=== PATIENT | male | born 1970 | race Caucasian/White ===

== ENCOUNTER 2017-06-12 16:17 | Emergency (ER) | payer BC, OTHER ==
[~2017-06-12] VITALS: Ht 182.9 cm; Wt 104.2 kg
[~2017-06-12 16:17] MED LIST: AMOX500T3 PO; CZR50 PO; PRT/40 PO; WARF5TAB90 PO
[2017-06-12 16:49] VITALS: TEMP 37; Ht 182.9 cm; Wt 104.2 kg
--- NOTE | 2017-06-12 17:22 | EMERGENCY ROOM VISIT NOTE ---
ED Visit Note First contact with patient: 16:53 CHIEF COMPLAINT: Head injury HISTORY OF PRESENT ILLNESS: This 46-year-old male patient on Coumadin for a mechanical heart valve, presented to the emergency department 1 day after receiving a head injury when he hit his head while getting into his car. 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 He states while getting into the car, he got clumsy, and struck the right side of his head on the top of the car. The patient states he immediately got a headache, and was slightly fatigued on his drive home, however he states he was awake since approximately 5:30 AM, so feels that his fatigue could've been related to a long day. The patient states he was slightly restless throughout the evening, and awoke approximately 4:30 AM sweating. The patient states he fell back asleep at approximately 6:00, and states he had more of a headache, so called off work. Patient states he has been taking it easy today, and has not been overtly active, which is unusual for him. The patient states the headache has not improved. There was no loss of consciousness. There has been no vomiting. The patient denies nausea, vomiting, loss of consciousness, visual disturbances, tinnitus, altered mental status, confusion, memory loss. The headache has been constant. The patient complains of no neck pain. The patient has taken nothing for the pain. The patient rates the pain as 3/10 and achy. The patient denies bowel or bladder dysfunction. The patient denies any other injuries. The patient did not take his Coumadin yesterday or today due to the head injury. He states he is concerned and does not want to restart his Coumadin until he finds out that everything is okay. REVIEW OF SYSTEMS: A 10-system review of systems was performed with positives and pertinent negatives listed in the history of present illness. All other systems were reviewed and are negative. ALLERGIES: Decongestants MEDICATIONS: Coumadin, losartan, pantoprazole PMH: Mechanical aortic valve, GERD SOCIAL HISTORY: Recent lives locally with family. He denies drug, alcohol, tobacco use. PHYSICAL EXAM: Vital Signs: Reviewed Nurse's notes, vital signs stable. GENERAL : This is a 46-year-old male, in no acute distress, well-developed, well- nourished. NEURO: The patient is alert, oriented to person place and time, and coherent. Normal mini mental status exam. Negative Romberg and pronator drift. Cerebellar function intact. HEAD: Normocephalic, atraumatic. EYES: Pupils are equal round and reactive to light and accommodation. EOMs are full and optic discs and fundi are normal. There is no swelling or discoloration of the tissue surrounding the eyes. EARS: External auditory canals clear without blood. NOSE: Patent without tenderness. No septal hematoma. FACE: No facial bone tenderness. NECK: Supple. There is no cervical spine tenderness. The patient does not have tenderness with movement of the neck. RADIOLOGY: CT Head without contrast: FINDINGS: [employer] Investigator topogram: Unremarkable. Ventricles and sulci normal in size. Brain parenchyma normal in appearance with preserved kennedy-white differentiation. No mass effect or midline shift. No hemorrhage or acute territorial infarct. No extra-axial fluid collection. Paranasal sinuses and mastoid air cells clear. Calvarium intact. Layering fluid in the left maxillary sinus IMPRESSION: 1. No acute intracranial pathology. No hemorrhage. 2. Layering fluid in left maxillary sinus could suggest acute sinusitis. Correlate clinically. ED COURSE: I examined the patient. INR was checked and was 2.0. CT of the head was performed without acute intracranial hemorrhage or fracture. I discussed with the patient treatment plan at home, and encouraged him to take 5 mg of Coumadin when he gets home, and follow up with his Coumadin clinic tomorrow for further instructions. The patient states he has been managing this alone for a long time, and will do what he feels necessary in managing his Coumadin dosage. I discussed the findings with the patient that he could have a possible sinusitis, and he states he has been feeling mildly congested recently, but has not been sick or feverish. The patient will follow up with his PCP regarding this finding. The patient was in agreement with workup and plan. The patient was discharged home in good condition ambulatory. DIFFERENTIAL DIAGNOSIS: Intracranial hemorrhage, skull fracture, contusion, concussion, closed head injury, and others DIAGNOSIS: Head injury DISCHARGE INSTRUCTIONS: You have been treated in the Emergency Department for a Closed Head Injury. CT Scan of your head/brain demonstrated no acute bleeding or other abnormalities. This does not completely rule out the risk for future damage to the brain. For pain control, you can use the following wkve-kax-nghjwki medicines (if >12 yo): - Regular strength (325mg/tab) Tylenol (acetaminophen) 2 tabs every 4-6 hours as needed. Do not exceed 9 tablets in a 24 hour period. Avoid taking more than 3 grams (3000 mg) of Tylenol per day. This includes any other sources of acetaminophen you may take on a regular basis. - Regular strength (200 mg/tab) Advil (ibuprofen) 1-2 tabs every 4-6 hours as needed. Do not exceed a dose of 2400 mg per day. You should relax in a quiet, dark place for the rest of the day. Avoid any possible triggers including: cigarette smoke, caffeine, nicotine, chocolate, wine, beer, loud noises or music, or bright lights. You should schedule a follow-up appointment in 2-3 days with your Primary Care Provider or established Neurologist for further evaluation and treatment of your Headache. Please follow up tomorrow regarding your INR and Coumadin dosing. Return to the Emergency Department if your current symptoms worsen despite treatment course outlined above, or if you develop any of the following symptoms : intractable pain despite aforementioned treatment course, visual disturbances , loss of vision, unilateral weakness or facial drooping, slurring of speech, loss of coordination, or loss of consciousness. Problem List Medical Problems: (1) Anticoagulants,Lt,Current Use Status: Chronic (2) Diarrhea Status: Resolved (3) Hypertension Nos Status: Chronic Surgical Problems: (1) Heart Valve Replac Nec Status: Chronic Current/Historical Medications Scheduled Amoxicillin (Amoxil), 2,000 MG PO UD Losartan Potassium (Losartan Potassium), 50 MG PO DAILY Pantoprazole (Pantoprazole Sodium), 40 MG PO DAILY Warfarin Sodium (Coumadin), 5 MG PO 4XWK Warfarin Sodium (Coumadin), 2.5 MG PO 3XWK Allergies Uncoded Allergies: DECONGESTANT (Allergy, Intermediate, HEART PALPITATIONS, 02/15/15) Vital Signs Date Time Temp Pulse Resp B/P (MAP) Pulse Ox O2 Delivery O2 Flow Rate FiO2 06/12/17 16:51 18 98 06/12/17 16:49 37.0 68 18 162/90 98 Room Air Departure Information Impression Primary Impression: Closed head injury Dispostion Home / Self-Care Condition GOOD Referrals Augusto Mc D.OLeonie (PCP) Patient Instructions ED Head Injury Closed, My [facility] Additional Instructions You have been treated in the Emergency Department for a Closed Head Injury. CT Scan of your head/brain demonstrated no acute bleeding or other abnormalities. This does not completely rule out the risk for future damage to the brain. For pain control, you can use the following kpbb-hyn-osvvtgw medicines (if >12 yo): - Regular strength (325mg/tab) Tylenol (acetaminophen) 2 tabs every 4-6 hours as needed. Do not exceed 9 tablets in a 24 hour period. Avoid taking more than 3 grams (3000 mg) of Tylenol per day. This includes any other sources of acetaminophen you may take on a regular basis. - Regular strength (200 mg/tab) Advil (ibuprofen) 1-2 tabs every 4-6 hours as needed. Do not exceed a dose of 2400 mg per day. You should relax in a quiet, dark place for the rest of the day. Avoid any possible triggers including: cigarette smoke, caffeine, nicotine, chocolate, wine, beer, loud noises or music, or bright lights. You should schedule a follow-up appointment in 2-3 days with your Primary Care Provider or established Neurologist for further evaluation and treatment of your Headache. Please follow up tomorrow regarding your INR and Coumadin dosing. Return to the Emergency Department if your current symptoms worsen despite treatment course outlined above, or if you develop any of the following symptoms : intractable pain despite aforementioned treatment course, visual disturbances , loss of vision, unilateral weakness or facial drooping, slurring of speech, loss of coordination, or loss of consciousness. Work Instructions Return To Work: 1 day Problem Qualifiers Primary Impression: Closed head injury Encounter type: initial encounter Qualified Codes: S09.90XA - Unspecified injury of head, initial encounter
--- NOTE | 2017-06-12 17:43 | DIAGNOSTIC IMAGING REPORT ---
HEAD WITHOUT CONTRAST (CT) CLINICAL HISTORY: 46 years-old Male presenting with head injury, headache, on coumadin. TECHNIQUE: Multidetector CT imaging of the head was performed without the use of intravenous contrast. IV contrast: None. A dose lowering technique was used consistent with the principles of ALARA (as low as reasonably achievable). COMPARISON: 02/15/2015. CT DOSE (mGy.cm): The estimated cumulative dose is 601.98 mGy.cm. 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 Ventricles and sulci normal in size. Brain parenchyma normal in appearance with preserved kennedy-white differentiation. No mass effect or midline shift. No hemorrhage or acute territorial infarct. No extra-axial fluid collection. Paranasal sinuses and mastoid air cells clear. Calvarium intact. Layering fluid in the left maxillary sinus IMPRESSION: 1. No acute intracranial pathology. No hemorrhage. 2. Layering fluid in left maxillary sinus could suggest acute sinusitis. Correlate clinically. Electronically signed by: Bismark Dsouza M.D. 06/12/2017 5:42 PM Dictated Date/Time: 06/12/2017 5:39 PM
[2017-06-12 18:34] VITALS: BP 132/92; PULSE 67; O2SAT 98
== END 2017-06-12 18:34 | disposition home or self-care (01) ==
LOC: C.EDB 16:18 → C.EDD 18:34
DX: S09.90XA Unspecified injury of head, initial encounter (principal); V48.4XXA Person boarding or alighting a car injured in noncollision transport accident, initial encounter; I35.8 Other nonrheumatic aortic valve disorders; K21.9 Gastro-esophageal reflux disease without esophagitis; I10 Essential (primary) hypertension; I51.9 Heart disease, unspecified; Z79.01 Long term (current) use of anticoagulants; Z79.899 Other long term (current) drug therapy

== ENCOUNTER 2017-10-01 20:13 | Emergency (ER) | payer OTHER ==
[~2017-10-01] VITALS: Ht 182.9 cm; Wt 104.3 kg
[~2017-10-01 20:13] MED LIST changes: +PANT40TA2 PO; -PRT/40 PO
[2017-10-01 20:20] VITALS: Ht 182.9 cm; Wt 104.3 kg
[2017-10-01] MEDS ORDERED: SODIUM CHLORIDE 0.9% 1000ML 1,000 ML IV STA (21:13)
--- NOTE | 2017-10-01 21:19 | EMERGENCY ROOM VISIT NOTE ---
History Report prepared by Giovanni: Joselyn Pearce Under the Supervision of: Dr. Maria Alejandra Martins D.O. First contact with patient: 21:02 Chief Complaint: FEVER Stated Complaint: 48+ HR HIGH FEVER,LIGHTHEADED,HEADACHE History of Present Illness The patient is a 47 year old male who presents to the Emergency Room with complaints of a constant fever beginning two days ago. Four days ago, the patient notes he started to feel "off". Two days ago, the patient had a chest x- ray at urgent care and was put on 500 mg of cefuroxime. He reports his temperature this morning was 103 degrees Fahrenheit. He notes a headache and lightheadedness when his fever is high. The patient has been taking Tylenol to manage his fever over the past two days. Presently, he feels asymptomatic and notes that he feels fine when he is on Tylenol. The patient had his aortic valve replaced in 1993 for aortic stenosis. He is on Coumadin and his last Coumadin level 3.4. Pt denies nasal congestion, change in vision, fevers, chest pain, shortness of breath, nausea, vomiting, diarrhea, pain with urination, and melena. Source of History: patient Onset: two days ago Position: other (generalized) Quality: other (fever) Timing: constant Associated Symptoms: + headache, No chest pain, No SOB, No nausea, No vomiting, No diarrhea, No urinary symptoms Review of Systems See HPI for pertinent positives & negatives. A total of 10 systems reviewed and were otherwise negative. Past Medical & Surgical Medical Problems: (1) Anticoagulants,Lt,Current Use (2) Diarrhea (3) Hypertension Nos Surgical Problems: (1) Heart Valve Replac Nec Family History Diabetes mellitus FHx: cancer Social History Smoking Status: Never Smoker Alcohol Use: none Drug Use: none Marital Status: Housing Status: lives with family Occupation Status: employed Current/Historical Medications Scheduled Amoxicillin (Amoxil), 2,000 MG PO UD Losartan Potassium (Losartan Potassium), 50 MG PO DAILY Pantoprazole (Pantoprazole Sodium), 40 MG PO DAILY Warfarin Sodium (Coumadin), 5 MG PO 4XWK Warfarin Sodium (Coumadin), 2.5 MG PO 3XWK Allergies Uncoded Allergies: DECONGESTANT (Allergy, Intermediate, HEART PALPITATIONS, 02/15/15) Physical Exam Vital Signs Date Time Temp Pulse Resp B/P (MAP) Pulse Ox O2 Delivery O2 Flow Rate FiO2 10/02/17 02:40 90 18 127/85 95 10/02/17 02:39 38.2 10/02/17 02:01 90 16 127/85 95 Room Air 10/02/17 01:19 97 Room Air 10/01/17 23:28 77 145/77 95 Room Air 10/01/17 20:20 38.0 117 18 158/89 95 Room Air Physical Exam GENERAL: alert, well appearing, well nourished, no distress, non-toxic EYE EXAM: normal conjunctiva, PERRL and EOM's grossly intact OROPHARYNX: no exudate, no erythema, lips, buccal mucosa, and tongue normal and mucous membranes are moist NECK: supple, no nuchal rigidity, no adenopathy, non-tender LUNGS: Clear to auscultation. Normal chest wall mechanics HEART: Well healed midline sternotomy scar, sound of artificial valve noted, no murmurs. ABDOMEN: abdomen soft, non-tender, normo-active bowel sounds, no masses, no rebound or guarding. BACK: Back is symmetrical on inspection and there is no deformity, no midline tenderness, no CVA tenderness. SKIN: no petechiae, rashes and no bruising, no Janeway lesions or Osler's nodes UPPER EXTREMITIES: upper extremities are grossly normal. LOWER EXTREMITIES: No pitting edema. NEURO EXAM: Normal sensorium, cranial nerves II-XII grossly intact, normal speech, no gross weakness of arms, no gross weakness of legs. Medical Decision & Procedures ER Provider Diagnostic Interpretation: CHEST 2 VIEWS from Urgent care on 09/30/17: FINDINGS: Cardiomediastinal silhouette and pulmonary vessels normal. Sternotomy wires are present. Opacity overlying the posterior inferior lung, not well delineated on the AP radiograph, although may be within the left lower lobe. No pneumothorax or pleural effusion is present. IMPRESSION: Question left lower lobe opacity. Standard two view chest radiograph is suggested for better delineation of the pulmonary anatomy. Radiology results have been interpreted by the radiologist and reviewed by me. TWO VIEW CHEST FINDINGS: PA and lateral chest radiographs are compared to study dated 03/03/2014. The patient is status post midline sternotomy. The heart is enlarged. The pulmonary vasculature is noncongested. The lungs and pleural spaces are clear. There is no pneumothorax. The bony thorax appears intact. IMPRESSION: Cardiomegaly with no active disease in the chest. Electronically signed by: Guille Valle M.D. Laboratory Results 10/01/17 21:40 Red Blood Count 5.26, Mean Corpuscular Volume 85.6, Mean Corpuscular Hemoglobin 28.7, Mean Corpuscular Hemoglobin Concent 33.6, Mean Platelet Volume 10.5, Neutrophils (%) (Auto) 81.4, Lymphocytes (%) (Auto) 7.8, Monocytes (%) (Auto) 9.7, Eosinophils (%) (Auto) 0.5, Basophils (%) (Auto) 0.3, Neutrophils # (Auto) 6.12, Lymphocytes # (Auto) 0.59, Monocytes # (Auto) 0.73, Eosinophils # (Auto) 0.04, Basophils # (Auto) 0.02 10/01/17 21:40 Test 10/01/17 21:40 10/01/17 21:46 10/01/17 22:15 10/01/17 22:42 White Blood Count 7.52 K/uL (4.8-10.8) Red Blood Count 5.26 M/uL (4.7-6.1) Hemoglobin 15.1 g/dL (14.0-18.0) Hematocrit 45.0 % (42-52) Mean Corpuscular Volume 85.6 fL (80-100) Mean Corpuscular Hemoglobin 28.7 pg (25-34) Mean Corpuscular Hemoglobin Concent 33.6 g/dl (32-36) Platelet Count 254 K/uL (130-400) Mean Platelet Volume 10.5 fL (7.4-10.4) Neutrophils (%) (Auto) 81.4 % Lymphocytes (%) (Auto) 7.8 % Monocytes (%) (Auto) 9.7 % Eosinophils (%) (Auto) 0.5 % Basophils (%) (Auto) 0.3 % Neutrophils # (Auto) 6.12 K/uL (1.4-6.5) Lymphocytes # (Auto) 0.59 K/uL (1.2-3.4) Monocytes # (Auto) 0.73 K/uL (0.11-0.59) Eosinophils # (Auto) 0.04 K/uL (0-0.5) Basophils # (Auto) 0.02 K/uL (0-0.2) RDW Standard Deviation 41.2 fL (36.4-46.3) RDW Coefficient of Variation 13.2 % (11.5-14.5) Immature Granulocyte % (Auto) 0.3 % Immature Granulocyte # (Auto) 0.02 K/uL (0.00-0.02) Prothrombin Time 21.4 SECONDS (9.0-12.0) Prothromb Time International Ratio 2.1 (0.9-1.1) Anion Gap 6.0 mmol/L (3-11) Est Creatinine Clear Calc Drug Dose 74.1 ml/min Estimated GFR () 61.4 Estimated GFR (Non- 52.9 BUN/Creatinine Ratio 8.8 (10-20) Calcium Level 8.8 mg/dl (8.5-10.1) Magnesium Level 2.1 mg/dl (1.8-2.4) Total Bilirubin 0.5 mg/dl (0.2-1) Aspartate Amino Transf (AST/SGOT) 37 U/L (15-37) Alanine Aminotransferase (ALT/SGPT) 56 U/L (12-78) Alkaline Phosphatase 104 U/L (45-117) Troponin I < 0.015 ng/ml (0-0.045) Total Protein 7.5 gm/dl (6.4-8.2) Albumin 3.6 gm/dl (3.4-5.0) Globulin 3.9 gm/dl (2.5-4.0) Albumin/Globulin Ratio 0.9 (0.9-2) Lipase 192 U/L (73-393) Bedside Lactic Acid Venous 0.89 mmol/L (0.90-1.70) Influenza Type A Antigen Neg for Influ A (NEG) Influenza Type B Antigen Neg for Influ B (NEG) Urine Color DK YELLOW Urine Appearance CLEAR (CLEAR) Urine pH 5.0 (4.5-7.5) Urine Specific [place] 1.029 (1.000-1.030) Urine Protein TRACE (NEG) Urine Glucose (UA) NEG (NEG) Urine Ketones TRACE (NEG) Urine Occult Blood NEG (NEG) Urine Nitrite NEG (NEG) Urine Bilirubin NEG (NEG) Urine Urobilinogen NEG (NEG) Urine Leukocyte Esterase NEG (NEG) Urine WBC (Auto) 1-5 /hpf (0-5) Urine RBC (Auto) 0-4 /hpf (0-4) Urine Hyaline Casts (Auto) 1-5 /lpf (0-5) Urine Epithelial Cells (Auto) 5-10 /lpf (0-5) Urine Bacteria (Auto) NEG (NEG) Laboratory results per my review. Medications Administered Medications (Trade) Dose Ordered Sig/Gianna Route Start Time Stop Time Status Last Admin Dose Admin Sodium Chloride 1,000 ml @ 999 mls/hr Q1H1M STAT IV 10/01/17 21:13 10/01/17 22:13 DC 10/01/17 21:13 999 MLS/HR ECG Indication: other (fever) Rate (beats per minute): 94 Rhythm: normal sinus Findings: T-wave inversion (lead three), left axis deviation ED Course 2103: The patient was evaluated in room C1B. A complete history and physical exam was performed. 2112: Ordered Sodium Chloride 1000 ml @ 999 mls/hr IV. 0039: I updated the patient on his test results he is resting comfortably. 0230: Upon reevaluation, the patient is feeling better. I discussed the findings and the treatment plan with the patient. He verbalizes agreement and understanding. The patient was discharged home. Medical Decision Differential diagnosis: Etiologies such as viral syndrome, otitis, pharyngitis, pneumonia, influenza, meningitis, urinary tract infection, sepsis, bacteremia, as well as others were entertained. Patient here due to persistent fever area patient taking Tylenol only as he is on Coumadin due to a heart valve and cannot take ibuprofen. Patient's fever improved by the time of my evaluation as he taken Tylenol prior. Patient's labs reassuring, strep negative, chest x-ray here without focal infiltrate or consolidation. Reviewed outpatient chest x-ray which questioned evolving pneumonia. Patient taking antibiotics as previously prescribed. Patient with mild respiratory symptoms, however stable vital signs and not hypoxic. Blood culture sent as a precaution given patient's history. Patient made aware of his slightly subtherapeutic INR. Vision states he will modify this and have her rechecked at the end of the week as he is very comfortable managing his INR as he has been doing so for 20 years. I do not suspect meningitis/encephalitis , I do not suspect endocarditis, pericarditis. I do not suspect bacteremia/ sepsis. I do not suspect failed outpatient therapy at this time. Patient instructed to have his INR rechecked after at adjusting his doses, discussed hydration, fever control, continuation of his antibiotic treatment, symptoms to watch and return for, close follow-up with his family doctor within 48 hours, he verbalized understanding all this was agreeable with plan. Patient well- appearing at time of discharge with stable vitals, tolerating by mouth, ambulating with a steady gait and had no complaints. Medication Reconcilliation Current Medication List: was personally reviewed by me Blood Pressure Screening Patient's blood pressure: Normal blood pressure Impression Primary Impression: Fever Scribe Attestation The scribe's documentation has been prepared under my direction and personally reviewed by me in its entirety. I confirm that the note above accurately reflects all work, treatment, procedures, and medical decision making performed by me. Departure Information Dispostion Home / Self-Care Referrals Darek Ramirez M.D.(KARI) (PCP) Forms HOME CARE DOCUMENTATION FORM, IMPORTANT VISIT INFORMATION Patient Instructions My [facility] Additional Instructions Please continue using Tylenol as needed for your fevers. Please continue your course of antibiotics until they are completed. While you're taking antibiotics please consider using probiotics to help prevent additional GI symptoms. If you develop persistent fevers, chest pain, trouble breathing, worsening cough, blood in your sputum, neck pain, vision changes, dizziness, increasing headaches, rash or spots on your skin, diarrhea, or you've any other new concerns, please return the emergency room. Problem Qualifiers Primary Impression: Fever Fever type: unspecified Qualified Codes: R50.9 - Fever, unspecified
[2017-10-01 21:48] LABS: BASO % 0.3 %; BASO ABS # 0.02 K/uL (0-0.2); COMPLETE YES; EOS % 0.5 %; IG% 0.3 %; LYMPH % 7.8 %; LYMPH ABS # 0.59 K/uL (1.2-3.4); MEAN CELL VOLUME 85.6 fL (80-100); MEAN CORPUSCULAR HEMOGLOBIN 28.7 pg (25-34); MEAN CORPUSCULAR HGB CONC 33.6 g/dl (32-36); MEAN PLATELET VOLUME 10.5 fL (7.4-10.4); MONO % 9.7 %; NEUT % 81.4 %; PLATELET COUNT 254 K/uL (130-400); RED BLOOD COUNT 5.26 M/uL (4.7-6.1); WHITE BLOOD COUNT 7.52 K/uL (4.8-10.8)
[2017-10-01 21:58] LABS: INR 2.1 (0.9-1.1); PROTHROMBIN TIME (PATIENT) 21.4 SECONDS (9.0-12.0)
[2017-10-01 22:09] LABS: ALT/SGPT 56 U/L (12-78); BLOOD UREA NITROGEN 14 mg/dl (7-18); BUN/CREATININE RATIO 8.8 (10-20); CALCIUM 8.8 mg/dl (8.5-10.1); CARBON DIOXIDE 26 mmol/L (21-32); CHLORIDE 102 mmol/L (98-107); CREATININE 1.54 mg/dl (0.60-1.40); GLUCOSE 113 mg/dl (70-99); MAGNESIUM 2.1 mg/dl (1.8-2.4); POTASSIUM 4.2 mmol/L (3.5-5.1); SODIUM 134 mmol/L (136-145)
[2017-10-01 22:14] LABS: ALB/GLOB RATIO 0.9 (0.9-2); ALKALINE PHOSPHATASE 104 U/L (45-117); AST/SGOT 37 U/L (15-37)
[2017-10-01 23:04] LABS: URINE APPEARANCE CLEAR (CLEAR); URINE BILIRUBIN NEG (NEG); URINE COLOR DK YELLOW; URINE NITRITE NEG (NEG); URINE SPECIFIC GRAVITY 1.029 (1.000-1.030); UROBILINOGEN NEG (NEG); ZZUR CULT IF INDIC CLEAN CATCH NO
[2017-10-01 23:12] LABS: MANUAL MICROSCOPIC REQUIRED? NO; REVIEW REQ? NO
--- NOTE | 2017-10-01 23:19 | DIAGNOSTIC IMAGING REPORT ---
TWO VIEW CHEST CLINICAL HISTORY: Fever. FINDINGS: PA and lateral chest radiographs are compared to study dated 03/03/2014. The patient is status post midline sternotomy. The heart is enlarged. The pulmonary vasculature is noncongested. The lungs and pleural spaces are clear. There is no pneumothorax. The bony thorax appears intact. IMPRESSION: Cardiomegaly with no active disease in the chest. Electronically signed by: Guille Valle M.D. 10/01/2017 11:18 PM Dictated Date/Time: 10/01/2017 11:17 PM
[2017-10-02 02:39] VITALS: TEMP 38.2
[2017-10-02 02:40] VITALS: BP 127/85; PULSE 90; O2SAT 95
[2017-10-03] MEDS ORDERED: GUAI600T49 PO (22:02)
[2017-10-03] MEDS ORDERED: ACET-1256 PO (22:02)
[2017-10-03] MEDS ORDERED: LEVO1TAB35 PO (22:02)
[2017-10-03] MEDS ORDERED: ONDA4TAB10 SL (23:44)
[2017-10-03] MEDS ORDERED: BENZ10LO2 PO (23:44)
[2017-10-06] MEDS ORDERED: LEVO1TAB35 PO (13:01)
[2017-10-06] MEDS ORDERED: LCTX PO (13:01)
[2017-10-06] MEDS ORDERED: AMOX875T PO (13:01)
== END 2017-10-02 02:41 | disposition home or self-care (01) ==
LOC: C.EDB 20:15 → C.EDC 10-02 02:41
DX: R50.9 Fever, unspecified (principal); I10 Essential (primary) hypertension; Z95.2 Presence of prosthetic heart valve; Z79.01 Long term (current) use of anticoagulants; Z79.899 Other long term (current) drug therapy; Z83.3 Family history of diabetes mellitus; Z80.9 Family history of malignant neoplasm, unspecified

== ENCOUNTER 2017-10-03 21:01 | Emergency (ER) | payer OTHER ==
[~2017-10-03] VITALS: Ht 182.9 cm; Wt 104.1 kg
[2017-10-03 21:10] VITALS: Ht 182.9 cm; Wt 104.1 kg
[2017-10-03] MEDS ORDERED: SODIUM CHLORIDE 0.9% 500ML 500 ML IV STA (21:50)
--- NOTE | 2017-10-03 21:51 | EMERGENCY ROOM VISIT NOTE ---
History Report prepared by Giovanni: Abdoulaye Wu Under the Supervision of: Dr. Francis Pemberton M.D. First contact with patient: 21:14 Chief Complaint: FEVER Stated Complaint: FEVER CANT KEEP HYDRATED History of Present Illness The patient is a 47 year old white male with a past medical history of HTN, GERD , and a heart valve who presents to the ED with a cc of a constant fever beginning four days ago. Pt has tried Tamiflu, an inhaler, Mucinex, Tylenol, and Motrin. He states the Tylenol will break his fever, but then it will come back. Pt had a fever of 103.3 degrees 1.5 hours ago. He reports he has taken three doses of 600mg of Advil over the past two days even though he is not supposed to because he is on Coumadin from his heart valve. Pt's does not think he is getting enough fluids. He was here two nights ago for similar symptoms, and his INR was 2.3. Pt will have episodes of lightheadedness, a headache, and coughing. Negative sorethroat, history of smoking, vomiting, urinary symptoms, back pain, swelling to his legs, rashes, recent travel. Source of History: patient Onset: 6 days ago Position: other (global) Quality: other (fever) Timing: constant Modifying Factors (Relieving): tylenol (works, but then it comes back) Associated Symptoms: + headache, + cough, No sorethroat, No vomiting, No back pain, No urinary symptoms, No rash Note: Associated symptoms: lightheadedness Denies: swelling to his legs, recent travel Review of Systems See HPI for pertinent positives and negatives. A total of ten systems were reviewed and were otherwise negative. Past Medical & Surgical Medical Problems: (1) Anticoagulants,Lt,Current Use (2) Diarrhea (3) Hypertension Nos Surgical Problems: (1) Heart Valve Replac Nec Family History Diabetes mellitus FHx: cancer Social History Smoking Status: Never Smoker Alcohol Use: none Drug Use: none Marital Status: Housing Status: lives with family Occupation Status: employed Current/Historical Medications Scheduled Amoxicillin (Amoxil), 2,000 MG PO UD Benzocaine-Menthol (Mouth-Thro (Cepacol Sore Throat), 1 ARTHUR PO QID Levofloxacin (Levaquin), 750 MG PO DAILY Losartan Potassium (Losartan Potassium), 50 MG PO DAILY Ondasetron Odt (Zofran Odt), 4 MG SL Q6H Pantoprazole (Pantoprazole Sodium), 40 MG PO DAILY Warfarin Sodium (Coumadin), 5 MG PO 4XWK Warfarin Sodium (Coumadin), 2.5 MG PO 3XWK Scheduled PRN Acetaminophen (Tylenol), 1,000 MG PO DIRECTED PRN for Pain or Fever Guaifenesin (Mucus Relief Er), 1 DOSE PO DIRECTED PRN for CONGESTION Allergies Coded Allergies: Chlorpheniramine (Verified Allergy, Intermediate, HEART PALPATATIONS, 10/03) Phenylpropanolamine (Verified Allergy, Intermediate, HEART PALPATATIONS, 10/03/17) Physical Exam Vital Signs Date Time Temp Pulse Resp B/P (MAP) Pulse Ox O2 Delivery O2 Flow Rate FiO2 10/03/17 23:55 88 20 134/72 98 10/03/17 22:35 37.4 82 20 122/88 96 Room Air 10/03/17 22:35 95 Room Air 10/03/17 21:10 37.6 104 20 125/90 94 Room Air Physical Exam GENERAL: Awake, alert, well-appearing, NAD HENT: Normocephalic, atraumatic. Posterior pharynx is clear, no swelling, erythema, or exudate. No meningismus. EYES: Normal conjunctiva. Sclera non-icteric. No photophobia NECK: Supple. No nuchal rigidity. FROM. RESPIRATORY: CTAB, no rhonchi, wheezing, crackles CARDIAC: RRR, no MRG ABDOMEN: Soft, NTND, BS+ MSK: No chest wall TTP, no LE edema NEURO: GCS 15, CN 2-12 intact, moves all 4s on command SKIN: No rash or jaundice noted. Medical Decision & Procedures ER Provider Diagnostic Interpretation: X-ray: Per my interpretation, radiologist review. CHEST ONE VIEW PORTABLE HISTORY: 47 years-old Male Evaluate Fever/Sepsis acute fever with sepsis COMPARISON: Chest radiograph 10/01/2017 TECHNIQUE: Portable AP view of the chest FINDINGS: Cardiac silhouette is again enlarged, unchanged. Prior median sternotomy. No pneumothorax, pleural effusion or overt pulmonary edema. Linear subsegmental left basilar opacities are new from prior. Bones appear grossly intact. IMPRESSION: 1. Cardiomegaly without overt pulmonary edema. 2. Linear subsegmental left basilar opacities suggest atelectasis. The above report was generated using voice recognition software. It may contain grammatical, syntax or spelling errors. Electronically signed by: Tam Alexis M.D. 10/03/2017 10:09 PM Dictated Date/Time: 10/03/2017 10:08 PM Laboratory Results 10/03/17 22:00 Red Blood Count 4.62, Mean Corpuscular Volume 83.5, Mean Corpuscular Hemoglobin 29.0, Mean Corpuscular Hemoglobin Concent 34.7, Mean Platelet Volume 10.0, Neutrophils (%) (Auto) 81.2, Lymphocytes (%) (Auto) 9.8, Monocytes (%) (Auto) 7.4, Eosinophils (%) (Auto) 1.0, Basophils (%) (Auto) 0.3, Neutrophils # (Auto) 5.89, Lymphocytes # (Auto) 0.71, Monocytes # (Auto) 0.54, Eosinophils # (Auto) 0.07, Basophils # (Auto) 0.02 10/03/17 22:00 Test 10/03/17 22:00 10/03/17 22:40 White Blood Count 7.25 K/uL (4.8-10.8) Red Blood Count 4.62 M/uL (4.7-6.1) Hemoglobin 13.4 g/dL (14.0-18.0) Hematocrit 38.6 % (42-52) Mean Corpuscular Volume 83.5 fL (80-100) Mean Corpuscular Hemoglobin 29.0 pg (25-34) Mean Corpuscular Hemoglobin Concent 34.7 g/dl (32-36) Platelet Count 213 K/uL (130-400) Mean Platelet Volume 10.0 fL (7.4-10.4) Neutrophils (%) (Auto) 81.2 % Lymphocytes (%) (Auto) 9.8 % Monocytes (%) (Auto) 7.4 % Eosinophils (%) (Auto) 1.0 % Basophils (%) (Auto) 0.3 % Neutrophils # (Auto) 5.89 K/uL (1.4-6.5) Lymphocytes # (Auto) 0.71 K/uL (1.2-3.4) Monocytes # (Auto) 0.54 K/uL (0.11-0.59) Eosinophils # (Auto) 0.07 K/uL (0-0.5) Basophils # (Auto) 0.02 K/uL (0-0.2) RDW Standard Deviation 39.5 fL (36.4-46.3) RDW Coefficient of Variation 13.1 % (11.5-14.5) Immature Granulocyte % (Auto) 0.3 % Immature Granulocyte # (Auto) 0.02 K/uL (0.00-0.02) Large Platelets 1+ Prothrombin Time 29.4 SECONDS (9.0-12.0) Prothromb Time International Ratio 2.9 (0.9-1.1) Anion Gap 8.0 mmol/L (3-11) Est Creatinine Clear Calc Drug Dose 92.6 ml/min Estimated GFR () 80.5 Estimated GFR (Non- 69.5 BUN/Creatinine Ratio 11.6 (10-20) Calcium Level 8.5 mg/dl (8.5-10.1) Troponin I < 0.015 ng/ml (0-0.045) Influenza Type A Antigen Neg for Influ A (NEG) Influenza Type B Antigen Neg for Influ B (NEG) Laboratory results reviewed by me Medications Administered Medications (Trade) Dose Ordered Sig/Gianna Route Start Time Stop Time Status Last Admin Dose Admin Sodium Chloride 500 ml @ 500 mls/hr Q1H STAT IV 10/03/17 21:50 10/03/17 22:49 DC 10/03/17 22:33 500 MLS/HR ECG Indication: SOB/dyspnea Rate (beats per minute): 90 Findings: T-wave inversion (single TWI in lead III), left axis deviation, other (normal intervals, no other STS changes or TWI) ED Course 2117: The patient was evaluated in room C03. A complete history and physical exam was performed. 2314: I reevaluated the patient. Discussed results and discharge instructions: he verbalized understanding and agreement. The patient is ready for discharge. Medical Decision The patient is a 47 year old white male with a past medical history of HTN, GERD , and a heart valve who presents to the ED with a cc of a constant fever beginning four days ago. Differential diagnosis: Etiologies such as viral syndrome, otitis, pharyngitis, pneumonia, influenza, meningitis, urinary tract infection, sepsis, bacteremia, as well as others were entertained. Patient was seen and evaluated the bedside. 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 Patient does take Coumadin and states that he has a mechanical and not a bioprosthetic heartfelt. Patient states his last INR was a touch low as he is supposed to be between 2.5 and 3. Patient has complained of some intermittent fever and it's been ongoing over the last several days. Patient states that his MAXIMUM TEMPERATURE is been one of 3. Patient states he's had severe otitis some type symptoms and some cough with some chest pain. Patient states the chest pain is more related to the cough. He denies any hemoptysis and does not have any shortness of breath. Patient otherwise is very well-appearing and states that he feels pretty well after taking some recent Tylenol. He is currently on Levaquin that he was prescribed for a possible bronchitis and/or pneumonia. Patient did have blood work that was completed along with an EKG and a troponin. Patient's EKG was nonischemic and patient had a negative troponin. Given this and the patient's infectious symptoms most likely infectious than ACS. Patient did have coags that were sent which shows he is a therapeutic INR of 2.9. Patient was negative for flu. Patient did have some mild anemia. Patient white blood cell count was within normal limits. Patient was instructed to continue to take his antibiotic therapy and continue over-the- counter symptomatic treatment at home. Patient was agreeable to this plan of care. Patient was able tolerate by mouth. Patient was given warning signs for which to return. Patient was given strict follow-up, discharge, and return precautions. All questions were answered. Patient was deemed suitable for outpatient follow-up at this time. Patient agreed with the plan of care and was safely discharged home. Impression Primary Impression: Fever Additional Impressions: Influenza-like symptoms Anemia Scribe Attestation The scribe's documentation has been prepared under my direction and personally reviewed by me in its entirety. I confirm that the note above accurately reflects all work, treatment, procedures, and medical decision making performed by me. Departure Information Dispostion Home / Self-Care Prescriptions Benzocaine-Menthol (Mouth-Thro (CEPACOL SORE THROAT) 1 Arthur Arthur 1 ARTHUR PO QID for 7 Days, #1 BAG Prov: Francis Pemberton M.D. 10/03/17 Ondasetron Odt (ZOFRAN ODT) 4 Mg Tab 4 MG SL Q6H for Nausea, #6 TAB Prov: Francis Pemberton M.D. 10/03/17 Referrals Darek Ramirez M.D.(KARI) (PCP) Forms HOME CARE DOCUMENTATION FORM, IMPORTANT VISIT INFORMATION Patient Instructions Coumadin, ED Upper Resp Infec Abx Tx, My [facility], Sore Throat - [facility], Sore Throats Self Care Additional Instructions Please return to the emergency department if you have worsening or recurrent symptoms not amenable to at-home treatment. Please call for a follow-up appointment with her primary care physician. Please take your medications as prescribed. If you have other concerns and/or complaints please feel free to also call your primary care physician's office or return the ED for further evaluation, management, and treatment. You may take tylenol 1000 mg every 6 hours as needed for pain. Please call tomorrow to obtain the results of your INR. Take your medications as prescribed. If taking an antibiotic consider taking a probiotic and/or eating yogurt, but at the least, please take with food as it can cause upset stomach. You have been examined and treated today on an emergency basis only. This is not a substitute for, or an effort to provide, complete comprehensive medical care. It is impossible to recognize and treat all injuries or illnesses in a single emergency department visit. It is therefore important that you follow up closely with [facility], your PCP, and/or your specialist(s). Call as soon as possible for an appointment. Thank you for your time and consideration. I look forward to speaking with you again soon. Please don't hesitate to call us if you have any questions. Problem Qualifiers Primary Impression: Fever Fever type: unspecified Qualified Codes: R50.9 - Fever, unspecified Additional Impressions: Anemia Anemia type: unspecified type Qualified Codes: D64.9 - Anemia, unspecified
[2017-10-03] MEDS ORDERED: ACET-1256 PO (22:02)
[2017-10-03] MEDS ORDERED: GUAI600T49 PO (22:02)
[2017-10-03] MEDS ORDERED: LEVO1TAB35 PO (22:02)
--- NOTE | 2017-10-03 22:11 | DIAGNOSTIC IMAGING REPORT ---
CHEST ONE VIEW PORTABLE HISTORY: 47 years-old Male Evaluate Fever/Sepsis acute fever with sepsis COMPARISON: Chest radiograph 10/01/2017 TECHNIQUE: Portable AP view of the chest FINDINGS: Cardiac silhouette is again enlarged, unchanged. Prior median sternotomy. No pneumothorax, pleural effusion or overt pulmonary edema. Linear subsegmental left basilar opacities are new from prior. Bones appear grossly intact. IMPRESSION: 1. Cardiomegaly without overt pulmonary edema. 2. Linear subsegmental left basilar opacities suggest atelectasis. The above report was generated using voice recognition software. It may contain grammatical, syntax or spelling errors. Electronically signed by: Tam Alexis M.D. 10/03/2017 10:09 PM Dictated Date/Time: 10/03/2017 10:08 PM
[2017-10-03 22:25] LABS: HEMATOCRIT 38.6 % (42-52); MEAN CELL VOLUME 83.5 fL (80-100); MEAN CORPUSCULAR HGB CONC 34.7 g/dl (32-36); PLATELET COUNT 213 K/uL (130-400); RED BLOOD COUNT 4.62 M/uL (4.7-6.1); WHITE BLOOD COUNT 7.25 K/uL (4.8-10.8)
[2017-10-03 22:35] VITALS: TEMP 37.4; O2SAT 95
[2017-10-03 22:45] LABS: BLOOD UREA NITROGEN 14 mg/dl (7-18); BUN/CREATININE RATIO 11.6 (10-20); CALCIUM 8.5 mg/dl (8.5-10.1); CARBON DIOXIDE 23 mmol/L (21-32); CHLORIDE 100 mmol/L (98-107); CREATININE 1.23 mg/dl (0.60-1.40); GLUCOSE 108 mg/dl (70-99); POTASSIUM 3.7 mmol/L (3.5-5.1); SODIUM 131 mmol/L (136-145)
[2017-10-03 22:47] LABS: BASO % 0.3 %; BASO ABS # 0.02 K/uL (0-0.2); COMPLETE YES; IG% 0.3 %; LARGE PLATELETS 1+; LYMPH % 9.8 %; LYMPH ABS # 0.71 K/uL (1.2-3.4); MONO % 7.4 %; NEUT % 81.2 %
[2017-10-03] MEDS ORDERED: BENZ10LO2 PO (23:44)
[2017-10-03] MEDS ORDERED: ONDA4TAB10 SL (23:44)
[2017-10-03 23:55] VITALS: BP 134/72; PULSE 88; O2SAT 98
[2017-10-04 00:11] LABS: INR 2.9 (0.9-1.1); PROTHROMBIN TIME (PATIENT) 29.4 SECONDS (9.0-12.0)
[2017-10-04] MEDS ORDERED: BENZ1LOZ24 PO (17:29)
[2017-10-04] MEDS ORDERED: ONDA4TAB10 SL (17:29)
[2017-10-06] MEDS ORDERED: AMOX875T PO (13:01)
[2017-10-06] MEDS ORDERED: LCTX PO (13:01)
[2017-10-06] MEDS ORDERED: LEVO1TAB35 PO (13:01)
== END 2017-10-03 23:57 | disposition home or self-care (01) ==
LOC: C.EDB 21:02 → C.EDC 23:57
DX: R50.9 Fever, unspecified (principal); R68.89 Other general symptoms and signs; D64.9 Anemia, unspecified; I10 Essential (primary) hypertension; K21.9 Gastro-esophageal reflux disease without esophagitis; Z95.2 Presence of prosthetic heart valve; Z79.01 Long term (current) use of anticoagulants; Z79.899 Other long term (current) drug therapy; Z83.3 Family history of diabetes mellitus; Z80.9 Family history of malignant neoplasm, unspecified

== ENCOUNTER 2017-10-04 15:34 | Inpatient (IN) | payer OTHER ==
[~2017-10-04] VITALS: Ht 182.9 cm; Wt 103.8 kg
[~2017-10-04 15:34] MED LIST changes: +ACET-1256 PO; +BENZ10LO2 PO; +GUAI600T49 PO; +LEVO1TAB35 PO; +ONDA4TAB10 SL
[2017-10-04] MEDS ORDERED: OPTIRAY 320 IV PRN (17:00)
--- NOTE | 2017-10-04 17:25 | EMERGENCY ROOM VISIT NOTE ---
History First contact with patient: 16:24 Chief Complaint: FEVER Stated Complaint: HIGH FEVER, COUGHED BLOOD- COUMADIN PT History of Present Illness The patient is a 47 year old male who presents to the Emergency Room with complaints of continued fever over the last 5 days. The patient was seen in the emergency department twice this week for similar complaint. He has had an associated productive cough, body aches and malaise. He is also had decreased appetite. The patient has been on Levaquin. This is day 01/03. This has not helped his symptoms. He also has reportedly been on Tamiflu. He has been alternating Tylenol with ibuprofen with only temporary relief of the fever. It was as high as 103F earlier this week. Today, it was 102. His last dose of Tylenol was at 1 PM. The patient became concerned because he had an episode of hemoptysis in the shower. He is on Coumadin for a history of a mechanical aortic valve replacement in 1993. Review of Systems 10 system review performed and negative unless noted in HPI or below Past Medical/Surgical History Medical Problems: (1) Anticoagulants,Lt,Current Use (2) Diarrhea (3) Hypertension Nos (4) Pneumonia Surgical Problems: (1) Heart Valve Replac Nec Family History Diabetes mellitus FHx: cancer Social History Smoking Status: Never Smoker Alcohol Use: none Drug Use: none Marital Status: Housing Status: lives with family Occupation Status: employed Current/Historical Medications Scheduled Amoxicillin (Amoxil), 2,000 MG PO UD Benzocaine-Menthol (Mouth-Thro (Cepacol Sore Throat), 1 ARTHUR PO QID Levofloxacin (Levaquin), 750 MG PO DAILY Losartan Potassium (Losartan Potassium), 50 MG PO DAILY Pantoprazole (Pantoprazole Sodium), 40 MG PO DAILY Warfarin Sodium (Coumadin), 5 MG PO 4XWK Warfarin Sodium (Coumadin), 2.5 MG PO 3XWK Scheduled PRN Acetaminophen (Tylenol), 1,000 MG PO DIRECTED PRN for Pain or Fever Guaifenesin (Mucus Relief Er), 1 DOSE PO DIRECTED PRN for CONGESTION Ondasetron Odt (Zofran Odt), 4 MG SL Q6H PRN for Nausea or Vomiting Physical Exam Vital Signs Date Time Temp Pulse Resp B/P (MAP) Pulse Ox O2 Delivery O2 Flow Rate FiO2 10/04/17 21:45 84 18 124/80 96 Room Air 10/04/17 20:42 87 18 119/97 97 Room Air 10/04/17 19:24 83 18 128/91 99 Room Air 10/04/17 18:25 38.7 86 18 132/89 98 Room Air 10/04/17 17:09 91 10/04/17 17:06 89 18 120/85 98 Room Air 10/04/17 15:55 37.5 107 20 135/81 96 Room Air Physical Exam VITALS: Vitals are noted on the nurse's note and reviewed by myself. Vital signs stable. GENERAL: 47-year-old male, mildly ill in appearance, SKIN: The skin was without rashes, erythema, edema, or bruising. No petechia noted HEAD: Normocephalic atraumatic. EYES: Pupils equal round and reactive to light and accommodation. Conjunctivae without injection, sclerae without icterus. Extraocular movements intact. MOUTH: Mucous membranes moist. Tonsils are not enlarged. Pharynx without erythema or exudate. Uvula midline. Airway patent. Tongue does not deviate. NECK: No nuchal rigidity. No lymphadenopathy. Cervical spine is nontender. No JVD. HEART: Systolic click. Regular rate and rhythm LUNGS: Crackles noted at the left base. Slight wheeze auscultated diffusely. No tachypnea. ABDOMEN: Positive bowel sounds x 4.Soft, nontender, without organomegaly. No guarding or rebound tenderness. MUSCULOSKELETAL: No muscle atrophy, erythema, or edema noted. Strength 5/5 throughout. NEURO: Patient was alert and oriented to person place and time. Normal sensation to touch. No focal neurological deficits. Medical Decision & Procedures ER Provider Diagnostic Interpretation: CT chest with contrast IMPRESSION: 1. No central or lobar pulmonary emboli identified. Segmental and subsegmental pulmonary arteries suboptimally assessed due to respiratory motion. 2. Extensive dense left lower lobe consolidation with additional groundglass opacity within left lower lobe which is highly suggestive of pneumonia. No cavitation. No central obstructing mass. Trace left pleural effusion. A follow-up chest CT in one month to ensure resolution is recommended. 2. Mild left hilar lymphadenopathy which is likely reactive. 3. Moderate aneurysmal dilatation of the ascending aorta, measuring 5.1 cm. No thoracic aortic dissection. Status post aortic valve replacement. Electronically signed by: Michele Mendez M.D. 10/04/2017 6:33 PM Dictated Date/Time: 10/04/2017 6:22 PM The status of this report is Signed. Draft = Not yet reviewed or approved by Radiologist. Signed = Reviewed and approved by Radiologist. Laboratory Results 10/04/17 17:11 Red Blood Count 4.81, Mean Corpuscular Volume 84.4, Mean Corpuscular Hemoglobin 28.5, Mean Corpuscular Hemoglobin Concent 33.7, Mean Platelet Volume 10.2, Neutrophils (%) (Auto) 78.5, Lymphocytes (%) (Auto) 12.2, Monocytes (%) (Auto) 7.7, Eosinophils (%) (Auto) 1.1, Basophils (%) (Auto) 0.4, Neutrophils # (Auto) 5.81, Lymphocytes # (Auto) 0.90, Monocytes # (Auto) 0.57, Eosinophils # (Auto) 0.08, Basophils # (Auto) 0.03 10/04/17 17:11 Test 10/04/17 17:04 10/04/17 17:11 10/04/17 18:25 Influenza Type A (RT-PCR) Neg for Influ A (NEG) Influenza Type B (RT-PCR) Neg for Influ B (NEG) White Blood Count 7.40 K/uL (4.8-10.8) Red Blood Count 4.81 M/uL (4.7-6.1) Hemoglobin 13.7 g/dL (14.0-18.0) Hematocrit 40.6 % (42-52) Mean Corpuscular Volume 84.4 fL (80-100) Mean Corpuscular Hemoglobin 28.5 pg (25-34) Mean Corpuscular Hemoglobin Concent 33.7 g/dl (32-36) Platelet Count 253 K/uL (130-400) Mean Platelet Volume 10.2 fL (7.4-10.4) Neutrophils (%) (Auto) 78.5 % Lymphocytes (%) (Auto) 12.2 % Monocytes (%) (Auto) 7.7 % Eosinophils (%) (Auto) 1.1 % Basophils (%) (Auto) 0.4 % Neutrophils # (Auto) 5.81 K/uL (1.4-6.5) Lymphocytes # (Auto) 0.90 K/uL (1.2-3.4) Monocytes # (Auto) 0.57 K/uL (0.11-0.59) Eosinophils # (Auto) 0.08 K/uL (0-0.5) Basophils # (Auto) 0.03 K/uL (0-0.2) RDW Standard Deviation 40.3 fL (36.4-46.3) RDW Coefficient of Variation 13.2 % (11.5-14.5) Immature Granulocyte % (Auto) 0.1 % Immature Granulocyte # (Auto) 0.01 K/uL (0.00-0.02) Prothrombin Time 30.3 SECONDS (9.0-12.0) Prothromb Time International Ratio 2.9 (0.9-1.1) Anion Gap 2.0 mmol/L (3-11) Est Creatinine Clear Calc Drug Dose 86.9 ml/min Estimated GFR () 74.6 Estimated GFR (Non- 64.4 BUN/Creatinine Ratio 9.4 (10-20) Lactic Acid Level 1.0 mmol/L (0.4-2.0) Calcium Level 8.4 mg/dl (8.5-10.1) Total Bilirubin 0.3 mg/dl (0.2-1) Aspartate Amino Transf (AST/SGOT) 60 U/L (15-37) Alanine Aminotransferase (ALT/SGPT) 83 U/L (12-78) Alkaline Phosphatase 124 U/L (45-117) Total Protein 7.4 gm/dl (6.4-8.2) Albumin 3.1 gm/dl (3.4-5.0) Globulin 4.3 gm/dl (2.5-4.0) Albumin/Globulin Ratio 0.7 (0.9-2) Urine Color YELLOW Urine Appearance CLEAR (CLEAR) Urine pH 5.5 (4.5-7.5) Urine Specific [place] 1.018 (1.000-1.030) Urine Protein NEG (NEG) Urine Glucose (UA) NEG (NEG) Urine Ketones NEG (NEG) Urine Occult Blood NEG (NEG) Urine Nitrite NEG (NEG) Urine Bilirubin NEG (NEG) Urine Urobilinogen NEG (NEG) Urine Leukocyte Esterase NEG (NEG) Medications Administered Medications (Trade) Dose Ordered Sig/Gianna Route Start Time Stop Time Status Last Admin Dose Admin Acetaminophen (Tylenol Tab) 650 mg NOW STAT PO 10/04/17 18:40 10/04/17 18:41 DC 10/04/17 18:44 650 MG Piperacillin Sod/ Tazobactam Sod (Zosyn Iv) 3.375 gm NOW STAT IV 10/04/17 18:52 10/04/17 18:53 DC 10/04/17 19:24 3.375 GM ED Course Patient was seen and examined Vital signs including blood pressure were reviewed medications list was verified with patient Labs were obtained, and a saline lock was established Imaging was performed The patient was reassessed, and resting comfortable. He was febrile. He was given 1 dose of Tylenol 650 mg by mouth. The case was discussed with my supervising physician. I also discussed the case with case management. I spoke with the [facility] team. They kindly agreed to admit the patient for further workup and treatment. Patient is in agreement with this plan. Medical Decision Differential diagnosis: Influenza, pneumonia, bronchitis, other viral syndrome, This patient is a 47-year-old male presents emergency department with continued cough, fever and episode of hemoptysis. On exam, he had crackles at the left base. He was febrile. The patient has had x-rays and blood work earlier this week. I ordered a CTA of the chest. This is consistent with a sizable left lower lobe pneumonia. He has not responded to Levaquin as an outpatient. I believe he likely needs to be admitted for IV antibiotics and monitoring. He is in agreement with this plan. This chart was completed in part utilizing [employer] Speech Voice Recognition software. Attempts were made to minimize the grammatical errors, random word insertions, pronoun errors and incomplete sentences. Any formal questions or concerns about the content, text or information contained within the body of this dictation should be directly addressed to the provider for clarification. Medication Reconcilliation Current Medication List: was personally reviewed by me Blood Pressure Screening Patient's blood pressure: Normal blood pressure Impression Primary Impression: Pneumonia Departure Information Referrals Darek Ramirez M.D.([facility]) (PCP) Patient Instructions My [facility]
[2017-10-04 17:27] LABS: BASO % 0.4 %; BASO ABS # 0.03 K/uL (0-0.2); COMPLETE YES; EOS % 1.1 %; HEMATOCRIT 40.6 % (42-52); IG% 0.1 %; LYMPH % 12.2 %; MEAN CELL VOLUME 84.4 fL (80-100); MEAN CORPUSCULAR HEMOGLOBIN 28.5 pg (25-34); MEAN CORPUSCULAR HGB CONC 33.7 g/dl (32-36); MEAN PLATELET VOLUME 10.2 fL (7.4-10.4); MONO % 7.7 %; NEUT % 78.5 %; PLATELET COUNT 253 K/uL (130-400); RED BLOOD COUNT 4.81 M/uL (4.7-6.1)
[2017-10-04] MEDS ORDERED: BENZ1LOZ24 PO (17:29)
[2017-10-04] MEDS ORDERED: ONDA4TAB10 SL (17:29)
[2017-10-04 17:34] LABS: INR 2.9 (0.9-1.1); PROTHROMBIN TIME (PATIENT) 30.3 SECONDS (9.0-12.0)
[2017-10-04 17:49] LABS: ALB/GLOB RATIO 0.7 (0.9-2); BUN/CREATININE RATIO 9.4 (10-20); CALCIUM 8.4 mg/dl (8.5-10.1); CREATININE 1.31 mg/dl (0.60-1.40)
[2017-10-04 17:50] LABS: POTASSIUM 4.3 mmol/L (3.5-5.1)
[2017-10-04 18:13] LABS: INFLUENZA A PCR Neg for Influ A (NEG); INFLUENZA B PCR Neg for Influ B (NEG)
--- NOTE | 2017-10-04 18:34 | DIAGNOSTIC IMAGING REPORT ---
CT ANGIOGRAPHY OF THE CHEST, PULMONARY EMBOLUS PROTOCOL CLINICAL HISTORY: Fever. Hemoptysis. COMPARISON STUDY: Chest radiograph October 03, 2017. TECHNIQUE: Following IV administration of 93 mL of [id number]-[id number], helical axial images of the chest were obtained utilizing the pulmonary embolus protocol. Maximal intensity projections and sagittal and coronal reformats were viewed on an independent 3D workstation. IV contrast was administered without complication. A dose lowering technique was utilized adhering to the principles of ALARA. CT DOSE: 557.21 mGy.cm FINDINGS: No central or lobar pulmonary emboli are identified. The segmental and subsegmental pulmonary arteries are suboptimally assessed due to respiratory motion. The heart is mildly enlarged. There are median sternotomy wires and a prosthetic aortic valve. Note is made of moderate aneurysmal dilatation of the ascending aorta which measures 5.1 cm at the level of the main pulmonary artery. There is no thoracic aortic dissection. A trace left pleural effusion is noted. There is dense left lower lobe consolidation with additional groundglass opacity within the left lower lobe. There is no cavitation. No central obstructing mass is identified. Mild left hilar lymphadenopathy is noted. An index left hilar node measures 1.1 cm in short axis diameter. Bony thorax and upper abdomen are unremarkable. IMPRESSION: 1. No central or lobar pulmonary emboli identified. Segmental and subsegmental pulmonary arteries suboptimally assessed due to respiratory motion. 2. Extensive dense left lower lobe consolidation with additional groundglass opacity within left lower lobe which is highly suggestive of pneumonia. No cavitation. No central obstructing mass. Trace left pleural effusion. A follow-up chest CT in one month to ensure resolution is recommended. 2. Mild left hilar lymphadenopathy which is likely reactive. 3. Moderate aneurysmal dilatation of the ascending aorta, measuring 5.1 cm. No thoracic aortic dissection. Status post aortic valve replacement. Electronically signed by: Michele Mendez M.D. 10/04/2017 6:33 PM Dictated Date/Time: 10/04/2017 6:22 PM
[2017-10-04 18:35] LABS: URINE APPEARANCE CLEAR (CLEAR); URINE BILIRUBIN NEG (NEG); URINE COLOR YELLOW; URINE NITRITE NEG (NEG); URINE PH 5.5 (4.5-7.5); URINE SPECIFIC GRAVITY 1.018 (1.000-1.030); UROBILINOGEN NEG (NEG)
[2017-10-04] MEDS ORDERED: ACETAMINOPHEN 325 MG TAB PO STA (18:40)
[2017-10-04 18:42] LABS: MANUAL MICROSCOPIC REQUIRED? NO; REVIEW REQ? NO
[2017-10-04] MEDS ORDERED: PIPERACILLIN/TAZOBACTAM 3.375 GM/100ML D5W IV STA (18:52)
--- NOTE | 2017-10-04 20:39 | History and Physical ---
History & Physical Date & Time of Service: Oct 04, 2017 at 20:39 Chief Complaint: High Fever, Coughed Blood- Coumadin Pt Primary Care Physician: Darek Ramirez M.D.(KARI) History of Present Illness Source: patient Patient is a 47 yr male with PMH of AVR on chronic anticoagulation, GERD, Thoracic aortic aneurysm, ROMI, Migraine and other problems presents with history of fever, chills, headache, dizziness, body aches and cough since last Friday. Patient was initially evaluated at Urgent Care and was started on Tamiflu and later discontinued. He also visited twice to ED with worsening symptoms and was prescribed Ceftin initially and later switched to Levaquin but patient continued to have fever spike and so returned back to ED for further evaluation. Reports malaise, decreased appetite and has using Tylenol and Ibuprofen as outpatient. Patient also noticed hemoptysis while showering this morning. Denies any history of chest pain, SOB, sick contact, nausea, vomiting, abd pain, diarrhea, dysuria. Past Medical/Surgical History Medical Problems: (1) Anticoagulants,Lt,Current Use Status: Chronic (2) Diarrhea Status: Resolved (3) Hypertension Nos Status: Chronic Surgical Problems: (1) Heart Valve Replac Nec Status: Chronic Family History Diabetes mellitus FHx: cancer Mother: Breast Cancer, DM II Social History Smoking Status: Never Smoker Alcohol Use: socially Drug Use: none Marital Status: Occupational Status: employed Allergies Coded Allergies: Chlorpheniramine (Verified Allergy, Intermediate, HEART PALPATATIONS, 10/04) Phenylpropanolamine (Verified Allergy, Intermediate, HEART PALPATATIONS, 10/04/17) Home Medications Scheduled Amoxicillin (Amoxil), 2,000 MG PO UD Benzocaine-Menthol (Mouth-Thro (Cepacol Sore Throat), 1 ARTHUR PO QID Levofloxacin (Levaquin), 750 MG PO DAILY Losartan Potassium (Losartan Potassium), 50 MG PO DAILY Pantoprazole (Pantoprazole Sodium), 40 MG PO DAILY Warfarin Sodium (Coumadin), 5 MG PO 4XWK Warfarin Sodium (Coumadin), 2.5 MG PO 3XWK Scheduled PRN Acetaminophen (Tylenol), 1,000 MG PO DIRECTED PRN for Pain or Fever Guaifenesin (Mucus Relief Er), 1 DOSE PO DIRECTED PRN for CONGESTION Ondasetron Odt (Zofran Odt), 4 MG SL Q6H PRN for Nausea or Vomiting Review of Systems See HPI for pertinent positives & negatives. A total of 10 systems reviewed and were otherwise negative. Physical Exam Vital Signs Date Time Temp Pulse Resp B/P (MAP) Pulse Ox O2 Delivery O2 Flow Rate FiO2 10/04/17 19:24 83 18 128/91 99 Room Air 10/04/17 18:25 38.7 86 18 132/89 98 Room Air 10/04/17 17:09 91 10/04/17 17:06 89 18 120/85 98 Room Air 10/04/17 15:55 37.5 107 20 135/81 96 Room Air General Appearance: WD/WN, no apparent distress Head: normocephalic, atraumatic Eyes: normal inspection, PERRL, EOMI, sclerae normal ENT: normal ENT inspection, hearing grossly normal Neck: supple, trachea midline Respiratory/Chest: chest non-tender, lungs clear, normal breath sounds, no respiratory distress, no accessory muscle use Cardiovascular: regular rate, rhythm, no murmur, + pertinent finding (Systolic click ) Abdomen/GI: normal bowel sounds, non tender, soft Back: normal inspection Extremities/Musculoskelatal: normal inspection, no pedal edema 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, no motor/sensory deficits, alert, normal mood/affect, oriented x 3 Skin: normal color, warm/dry Diagnostics Laboratory Results Results Past 24 Hours Test 10/04/17 17:04 10/04/17 17:11 10/04/17 18:25 Range/Units Influenza Type A (RT-PCR) Neg for Influ A NEG Influenza Type B (RT-PCR) Neg for Influ B NEG White Blood Count 7.40 4.8-10.8 K/uL Red Blood Count 4.81 4.7-6.1 M/uL Hemoglobin 13.7 14.0-18.0 g/dL Hematocrit 40.6 42-52 % Mean Corpuscular Volume 84.4 80-100 fL Mean Corpuscular Hemoglobin 28.5 25-34 pg Mean Corpuscular Hemoglobin Concent 33.7 32-36 g/dl Platelet Count 253 130-400 K/uL Mean Platelet Volume 10.2 7.4-10.4 fL Neutrophils (%) (Auto) 78.5 % Lymphocytes (%) (Auto) 12.2 % Monocytes (%) (Auto) 7.7 % Eosinophils (%) (Auto) 1.1 % Basophils (%) (Auto) 0.4 % Neutrophils # (Auto) 5.81 1.4-6.5 K/uL Lymphocytes # (Auto) 0.90 1.2-3.4 K/uL Monocytes # (Auto) 0.57 0.11-0.59 K/uL Eosinophils # (Auto) 0.08 0-0.5 K/uL Basophils # (Auto) 0.03 0-0.2 K/uL RDW Standard Deviation 40.3 36.4-46.3 fL RDW Coefficient of Variation 13.2 11.5-14.5 % Immature Granulocyte % (Auto) 0.1 % Immature Granulocyte # (Auto) 0.01 0.00-0.02 K/uL Prothrombin Time 30.3 9.0-12.0 SECONDS Prothromb Time International Ratio 2.9 0.9-1.1 Sodium Level 132 136-145 mmol/L Potassium Level 4.3 3.5-5.1 mmol/L Chloride Level 101 98-107 mmol/L Carbon Dioxide Level 29 21-32 mmol/L Anion Gap 2.0 3-11 mmol/L Blood Urea Nitrogen 12 7-18 mg/dl Creatinine 1.31 0.60-1.40 mg/dl Est Creatinine Clear Calc Drug Dose 86.9 ml/min Estimated GFR () 74.6 Estimated GFR (Non- 64.4 BUN/Creatinine Ratio 9.4 10-20 Random Glucose 107 70-99 mg/dl Lactic Acid Level 1.0 0.4-2.0 mmol/L Calcium Level 8.4 8.5-10.1 mg/dl Total Bilirubin 0.3 0.2-1 mg/dl Aspartate Amino Transf (AST/SGOT) 60 15-37 U/L Alanine Aminotransferase (ALT/SGPT) 83 12-78 U/L Alkaline Phosphatase 124 45-117 U/L Total Protein 7.4 6.4-8.2 gm/dl Albumin 3.1 3.4-5.0 gm/dl Globulin 4.3 2.5-4.0 gm/dl Albumin/Globulin Ratio 0.7 0.9-2 Urine Color YELLOW Urine Appearance CLEAR CLEAR Urine pH 5.5 4.5-7.5 Urine Specific [place] 1.018 1.000-1.030 Urine Protein NEG NEG Urine Glucose (UA) NEG NEG Urine Ketones NEG NEG Urine Occult Blood NEG NEG Urine Nitrite NEG NEG Urine Bilirubin NEG NEG Urine Urobilinogen NEG NEG Urine Leukocyte Esterase NEG NEG Microbiology Results 10/04/17 Blood Culture, Received Pending 10/04/17 Blood Culture, Received Pending 10/04/17 Gram Stain, Received Pending 10/04/17 Sputum Culture, Received Pending Diagnostic Radiology CTA: 1. No central or lobar pulmonary emboli identified. Segmental and subsegmental pulmonary arteries suboptimally assessed due to respiratory motion. 2. Extensive dense left lower lobe consolidation with additional groundglass opacity within left lower lobe which is highly suggestive of pneumonia. No cavitation. No central obstructing mass. Trace left pleural effusion. A follow-up chest CT in one month to ensure resolution is recommended. 2. Mild left hilar lymphadenopathy which is likely reactive. 3. Moderate aneurysmal dilatation of the ascending aorta, measuring 5.1 cm. No thoracic aortic dissection. Status post aortic valve replacement. Impression Assessment and Plan Sepsis/Community Acquired Pneumonia: Failed outpatient therapy Meets SIRS criteria Influenza negative CTA: No pulmonary emboli. LLL consolidation. T race left pleural effusion, Mild left hilar lymphadenopathy, No thoracic aortic dissection Needs repeat CT chest in 1 month is recommended. Start broad spectrum IV Antibiotics (Vanco, Zosyn, Levaquin) Oxygen support, Duonebs PRN Blood/Sputum cultures Lactate Normal IV fluids Hb stable Hyponatremia: Likely secondary to dehydration IV fluids, Monitor Na levels Transaminitis: Likely secondary to Tylenol use Monitor LFTs H/O AVR on chronic anticoagulation: INR: 2.9 Continue coumadin Monitor INR GERD: continue PPI H/O Thoracic aortic aneurysm: CTA: no thoracic aortic dissection monitor ROMI: Not using CPAP Heparin SQ: On coumadin Code Status: Full Code Disposition: Monitor in Tele
[2017-10-04] MEDS ORDERED: ONDANSETRON INJ 2 MG/ML 2 ML VIAL IV PRN (20:45)
[2017-10-04] MEDS ORDERED: SODIUM CHLORIDE 0.9% 1000ML 500 ML IV ONE (20:45)
[2017-10-04] MEDS ORDERED: ALBUTEROL 0.083% NEBU SOLN 3 ML VIAL INH PRN (20:45)
[2017-10-04] MEDS ORDERED: LEVOFLOXACIN / D5W 750 MG IV STA (21:02)
[2017-10-04] MEDS ORDERED: LEVOFLOXACIN CONSULT ACTIVE SCH (21:44)
[2017-10-04] MEDS ORDERED: PIPERACILL/TAZOBAC CONSULT ACTIVE PRN (21:45)
[2017-10-04 22:12] VITALS: BP 166/96; PULSE 91; TEMP 36.4; O2SAT 98; BMI 28.7
[2017-10-04 22:50] VITALS: BP 126/88; PULSE 97; TEMP 36.8; O2SAT 94; Ht 182.9 cm; Wt 103.8 kg
[2017-10-04] MEDS ORDERED: ZOLPIDEM TARTRATE 5 MG TAB PO PRN (23:45)
[2017-10-05] VITALS (8 sets, daily range): BP systolic 115–124; BP diastolic 75–84; PULSE 80–92; TEMP 36.8–38; O2SAT 94–98
[2017-10-05] MEDS ORDERED: VANCOMYCIN CONSULT ACTIVE PRN (00:43)
[2017-10-05] MEDS: PIPERACILL/TAZOBAC IV 3.375 GM in DEXTROSE 5% 100ML IV SCH ×4 (00:47→23:46)
[2017-10-05] MEDS ORDERED: VANCOMYCIN INJ 2,500 MG in SODIUM CHLORIDE 0.9% 500ML 500 ML IV ONE (01:00)
[2017-10-05 06:32] LABS: HEMATOCRIT 38.4 % (42-52); MEAN CORPUSCULAR HEMOGLOBIN 28.4 pg (25-34); MEAN CORPUSCULAR HGB CONC 33.9 g/dl (32-36); MEAN PLATELET VOLUME 10.1 fL (7.4-10.4); PLATELET COUNT 243 K/uL (130-400); RED BLOOD COUNT 4.57 M/uL (4.7-6.1); WHITE BLOOD COUNT 4.79 K/uL (4.8-10.8)
[2017-10-05 06:43] LABS: INR 2.8 (0.9-1.1); PROTHROMBIN TIME (PATIENT) 29.2 SECONDS (9.0-12.0)
[2017-10-05 07:11] LABS: BUN/CREATININE RATIO 9.6 (10-20); CALCIUM 8.4 mg/dl (8.5-10.1); CREATININE 1.16 mg/dl (0.60-1.40); MAGNESIUM 2.2 mg/dl (1.8-2.4)
[2017-10-05] MEDS: PANTOprazole SOD 40 MG TAB PO SCH (07:44)
[2017-10-05] MEDS: LOSARTAN POTASSIUM 50 MG TAB PO SCH (07:45)
[2017-10-05] MEDS ORDERED: INFLUENZA ADMINISTRATION CHARGE ONE (08:00)
[2017-10-05] MEDS ORDERED: INFLUENZA VIRUS QUAD VACCINE 0.5 ML SYR IM. ONE (08:00)
[2017-10-05] MEDS ORDERED: WARFARIN SOD 2.5 MG TAB PO SCH (16:00)
--- NOTE | 2017-10-05 18:16 | Progress Note ---
Internal Med Progress Note Date of Service: Oct 05, 2017. Provider Documentation: SUBJECTIVE: feeling much better cough has improved denies sob no chest pain no nausea OBJECTIVE: Vital Signs-as noted below Exam: General-alert and awake and not in distress ENT- normal hearing Neck-no neck masses Lungs-cta b/l no wheezing no crackles present Heart-s1 and s2 heard regular rate and rhythm no murmurs Abdomen-soft BS present non tender no distension Extremities- no edema no erythema Neuro-alert and awake moves extremities Lab data as noted below. ASSESSMENT & PLAN: Sepsis/Community Acquired Pneumonia: Failed outpatient therapy Meets SIRS criteria Influenza negative CTA: LLL consolidation. T race left pleural effusion, Needs repeat CT chest in 1 month is recommended. was started on IV Antibiotics (Vanco, Zosyn, Levaquin) mrsa swab negative stopped iv vanco much improved hemodynamics stable continue current abx Hyponatremia: resolved Transaminitis: Likely secondary to Tylenol use/sepsis Monitor LFTs improving H/O AVR on chronic anticoagulation: INR: 2.8 Continue coumadin Monitor INR GERD: continue PPI H/O Thoracic aortic aneurysm: CTA: no thoracic aortic dissection monitor ROMI: Not using CPAP DVT px On coumadin Code Status: Full Code Disposition: to be determined possible d/c in 1-2days Vital Signs: Date Time Temp Pulse Resp B/P (MAP) Pulse Ox O2 Delivery O2 Flow Rate FiO2 10/05/17 16:00 Room Air 10/05/17 15:13 37.1 80 18 115/82 (93) Room Air 10/05/17 12:58 37.4 10/05/17 12:00 Room Air 10/05/17 11:39 86 94 10/05/17 11:17 36.8 87 18 119/83 (95) Room Air 10/05/17 08:00 Room Air 10/05/17 07:33 37.4 10/05/17 07:32 38.0 92 18 117/84 (95) 95 Room Air 10/05/17 05:41 37.0 84 20 124/75 (91) 94 Room Air 10/05/17 04:00 Room Air 10/05/17 00:00 Room Air 10/04/17 22:50 36.8 97 18 126/88 94 Room Air 10/04/17 22:01 36.9 10/04/17 21:45 84 18 124/80 96 Room Air 10/04/17 20:42 87 18 119/97 97 Room Air 10/04/17 19:24 83 18 128/91 99 Room Air 10/04/17 18:25 38.7 86 18 132/89 98 Room Air Lab Results: Results Past 24 Hours Test 10/04/17 18:25 10/05/17 06:18 Range/Units Urine Color YELLOW Urine Appearance CLEAR CLEAR Urine pH 5.5 4.5-7.5 Urine Specific [place] 1.018 1.000-1.030 Urine Protein NEG NEG Urine Glucose (UA) NEG NEG Urine Ketones NEG NEG Urine Occult Blood NEG NEG Urine Nitrite NEG NEG Urine Bilirubin NEG NEG Urine Urobilinogen NEG NEG Urine Leukocyte Esterase NEG NEG White Blood Count 4.79 4.8-10.8 K/uL Red Blood Count 4.57 4.7-6.1 M/uL Hemoglobin 13.0 14.0-18.0 g/dL Hematocrit 38.4 42-52 % Mean Corpuscular Volume 84.0 80-100 fL Mean Corpuscular Hemoglobin 28.4 25-34 pg Mean Corpuscular Hemoglobin Concent 33.9 32-36 g/dl RDW Standard Deviation 39.7 36.4-46.3 fL RDW Coefficient of Variation 13.1 11.5-14.5 % Platelet Count 243 130-400 K/uL Mean Platelet Volume 10.1 7.4-10.4 fL Prothrombin Time 29.2 9.0-12.0 SECONDS Prothromb Time International Ratio 2.8 0.9-1.1 Sodium Level 136 136-145 mmol/L Potassium Level 4.0 3.5-5.1 mmol/L Chloride Level 103 98-107 mmol/L Carbon Dioxide Level 28 21-32 mmol/L Anion Gap 6.0 3-11 mmol/L Blood Urea Nitrogen 11 7-18 mg/dl Creatinine 1.16 0.60-1.40 mg/dl Est Creatinine Clear Calc Drug Dose 98.1 ml/min Estimated GFR () 86.4 Estimated GFR (Non- 74.6 BUN/Creatinine Ratio 9.6 10-20 Random Glucose 103 70-99 mg/dl Calcium Level 8.4 8.5-10.1 mg/dl Magnesium Level 2.2 1.8-2.4 mg/dl Total Bilirubin 0.5 0.2-1 mg/dl Direct Bilirubin 0.1 0-0.2 mg/dl Aspartate Amino Transf (AST/SGOT) 48 15-37 U/L Alanine Aminotransferase (ALT/SGPT) 80 12-78 U/L Alkaline Phosphatase 111 45-117 U/L Total Protein 6.6 6.4-8.2 gm/dl Albumin 2.8 3.4-5.0 gm/dl Microbiology Results 10/05/17 MRSA DNA Surveillance Screen - Final, Complete Specimen Negative for MRSA by DNA Probe
[2017-10-05] MEDS ORDERED: LEVOFLOXACIN 750MG / D5W IV SCH (22:00)
[2017-10-06 00:14] VITALS: BP 138/83; PULSE 86; TEMP 37.2; O2SAT 97
[2017-10-06 04:21] VITALS: BP 144/85; PULSE 77; TEMP 36.9; O2SAT 97
[2017-10-06 06:29] LABS: BASO ABS # 0.05 K/uL (0-0.2); COMPLETE YES; EOS % 10.8 %; HEMATOCRIT 39.5 % (42-52); IG% 0.4 %; LYMPH % 24.6 %; LYMPH ABS # 1.23 K/uL (1.2-3.4); MEAN CELL VOLUME 84.8 fL (80-100); MEAN CORPUSCULAR HEMOGLOBIN 27.9 pg (25-34); MEAN CORPUSCULAR HGB CONC 32.9 g/dl (32-36); MEAN PLATELET VOLUME 10.3 fL (7.4-10.4); MONO % 8.2 %; PLATELET COUNT 296 K/uL (130-400); RED BLOOD COUNT 4.66 M/uL (4.7-6.1); WHITE BLOOD COUNT 4.99 K/uL (4.8-10.8)
[2017-10-06 06:38] LABS: INR 2.7 (0.9-1.1); PROTHROMBIN TIME (PATIENT) 27.5 SECONDS (9.0-12.0)
[2017-10-06 07:09] LABS: BUN/CREATININE RATIO 10.8 (10-20); CALCIUM 8.5 mg/dl (8.5-10.1); CREATININE 1.22 mg/dl (0.60-1.40)
[2017-10-06 07:11] LABS: ALB/GLOB RATIO 0.7 (0.9-2)
[2017-10-06 08:04] VITALS: BP 125/87; PULSE 71; TEMP 36.7; O2SAT 96
[2017-10-06] MEDS: PANTOprazole SOD 40 MG TAB PO SCH (08:19)
[2017-10-06] MEDS: LOSARTAN POTASSIUM 50 MG TAB PO SCH (08:19)
[2017-10-06] MEDS: PIPERACILL/TAZOBAC IV 3.375 GM in DEXTROSE 5% 100ML IV SCH (08:25)
[2017-10-06 11:52] VITALS: BP 114/66; PULSE 78; TEMP 36.7; O2SAT 96
[2017-10-06] MEDS ORDERED: LCTX PO (13:01)
[2017-10-06] MEDS ORDERED: AMOX875T PO (13:01)
[2017-10-06] MEDS ORDERED: LEVO1TAB35 PO (13:01)
--- NOTE | 2017-10-06 13:04 | Discharge Instructions ---
Discharge Instructions Date of Service Oct 06, 2017. Admission Reason for Admission: Pneumonia Discharge Discharge Diagnosis / Problem: PNEUMONIA Discharge Goals Goal(s): Decrease discomfort, Improve function Activity Recommendations Activity Limitations: resume your previous activity . Instructions / Follow-Up Instructions / Follow-Up FOLLOWUP WITH FAMILY DOCTOR ON Sep AT 11:05AM FOLLOWUP WITH COUMADIN CLINIC CLOSELY FOR COUMADIN DOSING. ( TO CHECK LEVEL ON Sep WITH PRESCRIPTION FROM FAMILY DOCTOR). CT CHEST IN 4-6 WEEKS TO CHECK FOR RESOLUTION OF PNEUMONIA Current Hospital Diet Patient's current hospital diet: AHA Diet (Heart Healthy) Discharge Diet Recommended Diet: AHA Diet (Heart Healthy) Pending Studies Studies pending at discharge: no Medical Emergencies . Who to Call and When: Medical Emergencies: If at any time you feel your situation is an emergency, please call 911 immediately. . Non-Emergent Contact Non-Emergency issues call your: Primary Care Provider . . "Provider Documentation" section prepared by Danny Lopez. . VTE Core Measure Inpt VTE Proph given/why not?: Warfarin (Coumadin)
[2017-10-06 14:03] VITALS: BP 114/66; PULSE 78; TEMP 36.7; O2SAT 96
[2017-10-06] MEDS ORDERED: WARFARIN SOD 5 MG TAB PO SCH (16:00)
--- NOTE | 2017-10-06 18:56 | Progress Note ---
Internal Med Progress Note Date of Service: Oct 06, 2017. Provider Documentation: SUBJECTIVE: has some cough but better sob resolved ambulated fine no pain ok to go home OBJECTIVE: Vital Signs-as noted below Exam: General-alert and awake and not in distress ENT- normal hearing Neck-no neck masses Lungs-cta b/l no wheezing no crackles present Heart-s1 and s2 heard regular rate and rhythm no murmurs Abdomen-soft BS present non tender no distension Extremities- no edema no erythema Neuro-alert and awake moves extremities Lab data as noted below. ASSESSMENT & PLAN: Sepsis/Community Acquired Pneumonia: Failed outpatient therapy Meets SIRS criteria Influenza negative CTA: LLL consolidation. T race left pleural effusion, Needs repeat CT chest in 1 month is recommended. was started on IV Antibiotics (Vanco, Zosyn, Levaquin) mrsa swab negative stopped iv vanco much improved hemodynamics stable discharged on one more week of po Levaquin and Augmentin f/u with pcp Hyponatremia: resolved Transaminitis: Likely secondary to Tylenol use/sepsis Monitor LFTs improving f/u labs with pcp. H/O AVR on chronic anticoagulation: INR: 2.8 Continue coumadin Monitor INR GERD: continue PPI H/O Thoracic aortic aneurysm: CTA: no thoracic aortic dissection monitor ROMI: Not using CPAP discharged home Vital Signs: Date Time Temp Pulse Resp B/P (MAP) Pulse Ox O2 Delivery O2 Flow Rate FiO2 10/06/17 14:03 36.7 78 18 96 Room Air 10/06/17 12:07 Room Air 10/06/17 11:52 36.7 78 18 114/66 (82) 96 Room Air 10/06/17 08:25 Room Air 10/06/17 08:04 36.7 71 18 125/87 (100) 96 Room Air 10/06/17 04:21 36.9 77 16 144/85 (104) 97 Room Air 10/06/17 04:00 Room Air 10/06/17 00:14 37.2 86 16 138/83 (101) 97 Room Air 10/06/17 00:00 Room Air 10/05/17 20:05 37.4 83 16 118/78 (91) 98 Room Air 10/05/17 20:00 Room Air Lab Results: Results Past 24 Hours Test 10/06/17 05:58 Range/Units White Blood Count 4.99 4.8-10.8 K/uL Red Blood Count 4.66 4.7-6.1 M/uL Hemoglobin 13.0 14.0-18.0 g/dL Hematocrit 39.5 42-52 % Mean Corpuscular Volume 84.8 80-100 fL Mean Corpuscular Hemoglobin 27.9 25-34 pg Mean Corpuscular Hemoglobin Concent 32.9 32-36 g/dl Platelet Count 296 130-400 K/uL Mean Platelet Volume 10.3 7.4-10.4 fL Neutrophils (%) (Auto) 55.0 % Lymphocytes (%) (Auto) 24.6 % Monocytes (%) (Auto) 8.2 % Eosinophils (%) (Auto) 10.8 % Basophils (%) (Auto) 1.0 % Neutrophils # (Auto) 2.74 1.4-6.5 K/uL Lymphocytes # (Auto) 1.23 1.2-3.4 K/uL Monocytes # (Auto) 0.41 0.11-0.59 K/uL Eosinophils # (Auto) 0.54 0-0.5 K/uL Basophils # (Auto) 0.05 0-0.2 K/uL RDW Standard Deviation 40.3 36.4-46.3 fL RDW Coefficient of Variation 13.1 11.5-14.5 % Immature Granulocyte % (Auto) 0.4 % Immature Granulocyte # (Auto) 0.02 0.00-0.02 K/uL Prothrombin Time 27.5 9.0-12.0 SECONDS Prothromb Time International Ratio 2.7 0.9-1.1 Sodium Level 135 136-145 mmol/L Potassium Level 4.0 3.5-5.1 mmol/L Chloride Level 102 98-107 mmol/L Carbon Dioxide Level 27 21-32 mmol/L Anion Gap 6.0 3-11 mmol/L Blood Urea Nitrogen 13 7-18 mg/dl Creatinine 1.22 0.60-1.40 mg/dl Est Creatinine Clear Calc Drug Dose 93.3 ml/min Estimated GFR () 81.3 Estimated GFR (Non- 70.2 BUN/Creatinine Ratio 10.8 10-20 Random Glucose 101 70-99 mg/dl Calcium Level 8.5 8.5-10.1 mg/dl Total Bilirubin 0.4 0.2-1 mg/dl Aspartate Amino Transf (AST/SGOT) 53 15-37 U/L Alanine Aminotransferase (ALT/SGPT) 102 12-78 U/L Alkaline Phosphatase 107 45-117 U/L Total Protein 6.8 6.4-8.2 gm/dl Albumin 2.8 3.4-5.0 gm/dl Globulin 4.0 2.5-4.0 gm/dl Albumin/Globulin Ratio 0.7 0.9-2
--- NOTE | 2017-10-06 19:13 | Discharge Summary ---
Discharge Summary Date of Service Oct 06, 2017. Discharge Summary Admission Date: Oct 04, 2017 at 20:43 Discharge Date: Oct 06, 2017 Discharge Disposition: Home Principal Diagnosis: PNEUMONIA Secondary Diagnoses/Problems: 1) Anticoagulants,Lt,Current Use Status: Chronic (2) Diarrhea Status: Resolved (3) Hypertension Nos Status: Chronic Procedures: CTA CHEST: 1. No central or lobar pulmonary emboli identified. Segmental and subsegmental pulmonary arteries suboptimally assessed due to respiratory motion. 2. Extensive dense left lower lobe consolidation with additional groundglass opacity within left lower lobe which is highly suggestive of pneumonia. No cavitation. No central obstructing mass. Trace left pleural effusion. A follow-up chest CT in one month to ensure resolution is recommended. 2. Mild left hilar lymphadenopathy which is likely reactive. 3. Moderate aneurysmal dilatation of the ascending aorta, measuring 5.1 cm. No thoracic aortic dissection. Status post aortic valve replacement. Medication Reconciliation New Medications: Amoxicillin & Pot Clavulanate (Augmentin 875-125 mg) 1 Tab Tab 875 MG PO BID for 7 Days, #14 TAB Lactobacillus Acidophilus (Lactinex) Tab 2 TAB PO BID for 10 Days, TAB Continued Medications: Acetaminophen (Tylenol) 500 Mg Tab 1000 MG PO DIRECTED PRN for Pain or Fever, TAB Amoxicillin (Amoxil) 500 Mg Tab 2000 MG PO UD, TAB 30-60 MIN PRIOR TO DENTAL PROCEDURE Benzocaine-Menthol (Mouth-Thro (Cepacol Sore Throat) 1 [place] 1 ARTHUR PO QID Guaifenesin (Mucus Relief Er) 600 Mg Tab 1 DOSE PO DIRECTED PRN for CONGESTION Levofloxacin (Levaquin) 750 Mg Tab 750 MG PO DAILY for 7 Days, #7 TAB (This prescription has been renewed) STARTED 10/02/17 FOR 10 DAYS. Losartan Potassium (Losartan Potassium) 50 Mg Tab 50 MG PO DAILY Ondasetron Odt (Zofran Odt) 4 Mg Tab 4 MG SL Q6H PRN for Nausea or Vomiting, #6 TAB Pantoprazole (Pantoprazole Sodium) 40 Mg Tab 40 MG PO DAILY Warfarin Sodium (Coumadin) 5 Mg Tab 5 MG PO 4XWK, TAB mon,,wed,fri,& sat Warfarin Sodium (Coumadin) 5 Mg Tab 2.5 MG PO 3XWK, TAB TAKE - & SUN Admission Information HPI (per Admitting provider): Patient is a 47 yr male with PMH of AVR on chronic anticoagulation, GERD, Thoracic aortic aneurysm, ROMI, Migraine and other problems presents with history of fever, chills, headache, dizziness, body aches and cough since last Friday. Patient was initially evaluated at Urgent Care and was started on Tamiflu and later discontinued. He also visited twice to ED with worsening symptoms and was prescribed Ceftin initially and later switched to Levaquin but patient continued to have fever spike and so returned back to ED for further evaluation. Reports malaise, decreased appetite and has using Tylenol and Ibuprofen as outpatient. Patient also noticed hemoptysis while showering this morning. Denies any history of chest pain, SOB, sick contact, nausea, vomiting, abd pain, diarrhea, dysuria. 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 T race left pleural effusion, Needs repeat CT chest in 1 month is recommended. was started on IV Antibiotics (Vanco, Zosyn, Levaquin) mrsa swab negative stopped iv vanco much improved hemodynamics stable discharged on one more week of po Levaquin and Augmentin f/u with pcp Hyponatremia: resolved Transaminitis: Likely secondary to Tylenol use/sepsis Monitor LFTs improving f/u labs with pcp. H/O AVR on chronic anticoagulation: INR: 2.8 Continue coumadin Monitor INR GERD: continue PPI H/O Thoracic aortic aneurysm: CTA: no thoracic aortic dissection monitor ROMI: Not using CPAP discharged home Total time spent on discharge = 35MINUTES This includes examination of the patient, discharge planning, medication reconciliation, and communication with other providers. Discharge Instructions Discharge Instructions Date of Service Oct 06, 2017. Admission Reason for Admission: Pneumonia Discharge Discharge Diagnosis / Problem: PNEUMONIA Discharge Goals Goal(s): Decrease discomfort, Improve function Activity Recommendations Activity Limitations: resume your previous activity . Instructions / Follow-Up Instructions / Follow-Up FOLLOWUP WITH FAMILY DOCTOR ON Sep AT 11:05AM FOLLOWUP WITH COUMADIN CLINIC CLOSELY FOR COUMADIN DOSING. ( TO CHECK LEVEL ON Sep WITH PRESCRIPTION FROM FAMILY DOCTOR). CT CHEST IN 4-6 WEEKS TO CHECK FOR RESOLUTION OF PNEUMONIA Current Hospital Diet Patient's current hospital diet: AHA Diet (Heart Healthy) Discharge Diet Recommended Diet: AHA Diet (Heart Healthy) Pending Studies Studies pending at discharge: no Medical Emergencies . Who to Call and When: Medical Emergencies: If at any time you feel your situation is an emergency, please call 911 immediately. . Non-Emergent Contact Non-Emergency issues call your: Primary Care Provider . . "Provider Documentation" section prepared by Danny Lopez. . VTE Core Measure Inpt VTE Proph given/why not?: Warfarin (Coumadin)
== END 2017-10-06 15:00 | disposition home or self-care (01) | DRG 871 ==
LOC: C.EDB 15:35 → C.MED 20:43 → ENRESERV 21:50
PROVIDERS: ADMIT Internal Medicine; ATTEND Internal Medicine
DX: A41.9 Sepsis, unspecified organism (principal); J18.9 Pneumonia, unspecified organism; E87.1 Hypo-osmolality and hyponatremia; I10 Essential (primary) hypertension; Z87.01 Personal history of pneumonia (recurrent); R74.0 Nonspecific elevation of levels of transaminase and lactic acid dehydrogenase [LDH]; K21.9 Gastro-esophageal reflux disease without esophagitis; G47.33 Obstructive sleep apnea (adult) (pediatric); Z95.2 Presence of prosthetic heart valve; Z79.01 Long term (current) use of anticoagulants; Z83.3 Family history of diabetes mellitus; Z80.9 Family history of malignant neoplasm, unspecified